=== PATIENT | male | born 1955 | race African-American/Black ===

== ENCOUNTER 2018-05-23 10:04 | Day surgery (SDC) | payer OTHER ==
[~2018-05-23] VITALS: Ht 165.1 cm; Wt 55.1 kg
[2018-05-23 11:33] VITALS: BP 136/86; PULSE 74; RESP 15; Ht 165.1 cm; Wt 55.1 kg
[2018-05-23] MEDS ORDERED: VITAMINS (11:54)
[2018-05-23] MEDS ORDERED: [UNRECOGNIZED DRUG - OTHER] (11:54)
[2018-05-23] MEDS ORDERED: ASPIRIN (11:54)
[2018-05-23] MEDS ORDERED: MIDAZOLAM 1 MG/ML 2 ML INJ ONE ×2 (12:15)
[2018-05-23] MEDS ORDERED: FENTAnyl 50 MCG/ML VIAL ONE (12:15)
[2018-05-23 12:35] VITALS: BP 121/77; PULSE 76; RESP 21
== END 2018-05-23 16:44 | disposition home or self-care (01) ==
LOC: GIL 10:04
PROVIDERS: ATTEND Internal Medicine Gastroenterology
DX: Z12.11 Encounter for screening for malignant neoplasm of colon (principal); K64.8 Other hemorrhoids; I10 Essential (primary) hypertension
CPT/HCPCS: 45378; J2250; J3010